=== PATIENT | male | born 1995 | race Caucasian/White ===

== ENCOUNTER 2018-09-23 20:32 | Emergency (ER) | payer SELFPAY ==
[2018-09-23] MEDS ORDERED: SODIUM CHLORIDE 0.9% 1000ML 1,000 ML IVS ONE ×2 (21:15→22:13)
--- NOTE | 2018-09-23 21:53 | RAD ---
EXAM DESCRIPTION: Chest,1 View CLINICAL HISTORY:23 years Male, HEART "RACING". METHAMPHETAMINE ABUSE. Comparison: None FINDINGS: No focal lung consolidation. No pleural effusion. No pneumothorax. Cardiac and mediastinal silhouette is unremarkable. No acute osseous abnormality. Soft tissues are unremarkable. IMPRESSION: No acute findings. No focal lung consolidation. Electronically signed by: Anish Dickson MD 09/23/2018 9:51 PM CDT
[2018-09-23] MEDS ORDERED: cefTRIAXone SODIUM 1 GM in SODIUM CHL 0.9% 50ML MIN-BAG+ 50 ML IVPB ONE (23:29)
[2018-09-23] MEDS ORDERED: SODIUM CHL 0.9% 50ML MIN-BAG+ 50 ML IVPB ONE (23:32)
[2018-09-23] MEDS ORDERED: cefTRIAXone SODIUM 1 GM VIAL ONE (23:32)
--- NOTE | 2018-09-23 23:32 | ED.PDOC ---
History of Present Illness - General Chief Complaint: Drug or Alcohol Abuse Stated Complaint: altered mental status possible methampethine use Time Seen by Provider: 09/23/18 21:03 Source: patient, police Exam Limitations: no limitations - History of Present Illness Initial Comments: FAMILY CALLED POLICE ON PT FOR ALLEGEDLY BEING STRUNG OUT ON METH FOR 3 DAYS. PT DENIES ANY METH OR OTHER ILLICIT DRUG USE. HE STATES HE HASN'T SLEPT FOR 3 D AND HAS HAD POOR PO INTAKE BUT HAS BEEN DRINKING WATER. Severity: moderate Improving Factors: nothing Worsening Factors: nothing Associated Symptoms: denies symptoms Allergies/Adverse Reactions: Allergies NO KNOWN ALLERGY Allergy (Verified 09/23/18 20:56) Home Medications: Ambulatory Orders Sulfa/Trimeth 800/160 (Ds) Tab [Bactrim DS Tab] 1 unit PO BID #14 tab 09/23/18 Review of Systems - Review of Systems Constitutional: States: no symptoms reported EENTM: States: no symptoms reported Respiratory: States: no symptoms reported Cardiology: States: no symptoms reported Gastrointestinal/Abdominal: States: no symptoms reported Genitourinary: States: no symptoms reported Musculoskeletal: States: no symptoms reported Skin: States: no symptoms reported Neurological: States: no symptoms reported Endocrine: States: no symptoms reported Hematologic/Lymphatic: States: no symptoms reported All other Systems: Reviewed and Negative Past Medical History (General) - Patient Medical History Hx Seizures: No Hx Stroke: No Hx Dementia: No Hx Asthma: No Hx of COPD: No Hx Cardiac Disorders: No Hx Congestive Heart Failure: No Hx Pacemaker: No Hx Hypertension: No Hx Thyroid Disease: No Hx Diabetes: No Hx Gastroesophageal Reflux: No Hx Renal Disease: No Hx Cancer: No Hx of HIV: No Hx Hepatitis C: No Hx MRSA: No Surgical History: no surgical history - Vaccination History Hx Tetanus, Diphtheria Vaccination: No Hx Influenza Vaccination: No Hx Pneumococcal Vaccination: No Immunizations Up to Date: No - Social History Hx Tobacco Use: No Hx Alcohol Use: Yes Hx Substance Use: Yes - per family member Hx Substance Use Treatment: Yes - MR per family member Hx Depression: No - Triage Comment ED Triage Comment: Family member called and states patient has been on methampethine for past 3 days and not acting appropriatly this evening. Family is requesting patient to be sent to [facility] for Drug treatment. Family Medical History - Family History Father Family History: No Known Living Status: Still Living Physical Exam - Physical Exam General Appearance: Alert, No apparent distress Eye Exam: bilateral normal Ears, Nose, Throat: hearing grossly normal, normal ENT inspection Neck: non-tender, full range of motion Respiratory: chest non-tender, lungs clear Cardiovascular/Chest: normal peripheral pulses, regular rate, rhythm Peripheral Pulses: radial,right: 2+, radial,left: 2+ Gastrointestinal/Abdominal: normal bowel sounds, non tender Back Exam: normal inspection, no CVA tenderness Extremity: normal range of motion, non-tender 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 UDS NEG EXCEPT CANNABIS. NEG FOR METH. CXR NEG. CARD ENZ NEG. LACTIC ACID NL. CANNABIS ABUSE UTI AND WBC 15, ELEV NEUTS - ROCEPHIN. RX BACTRIM. SEE PCP FOR ETX OF UTI IN A MALE. ELEV BILI ELEV CK, DEHYDRATION, SINUS TACH PER EKG - GAVE BOLUS X 2. 09/23/18 23:36 Departure - Departure Clinical Impression: Dehydration, Cannabis abuse, Sinus tachycardia by electrocardiogram, Bilirubinemia, Elevated creatine kinase level, Urinary tract infection in male, Neutrophilic leukocytosis Disposition: Discharge to Home or Self Care Condition: Fair Departure Forms: ED Discharge - Pt. Copy, Patient Portal Self Enrollment Instructions: Dehydration, Adult (DC), Urinary Tract Infections in Adults Diet: resume usual diet Activity: increase activity as tolerated Prescriptions: Sulfa/Trimeth 800/160 (Ds) Tab [Bactrim DS Tab] 1 unit PO BID #14 tab Home Medications: Ambulatory Orders Sulfa/Trimeth 800/160 (Ds) Tab [Bactrim DS Tab] 1 unit PO BID #14 tab 09/23/18 Additional Instructions: You became dehydrated. Be sure to drink at least 64 ounces of water per day. You have a bladder infection. Please take all of the antibiotics and follow up with your regular doctor to help determine why you developed an infection. Please avoid drug use.
[2018-09-24 01:56] VITALS: BP 119/85; TEMP 98.1; O2SAT 98
== END 2018-09-24 02:21 | disposition home or self-care (01) ==
LOC: ER 20:32
DX: E86.0 Dehydration (principal); N39.0 Urinary tract infection, site not specified; F12.10 Cannabis abuse, uncomplicated; R00.0 Tachycardia, unspecified; E80.7 Disorder of bilirubin metabolism, unspecified; R94.4 Abnormal results of kidney function studies; D72.828 Other elevated white blood cell count
CPT/HCPCS: 36415; 71045; 80053; 80307; 80320; 81001; 82550; 82553; 83605; 84484; 85025; 87086; 93005; J0696; J7030; J7050